=== PATIENT | female | born 1945 | race Caucasian/White ===

== ENCOUNTER → 2021-03-05 | Outpatient (CLI) | payer BC ==
[~2021-03-05] VITALS: Ht 167.6 cm; Wt 70.3 kg
[2021-03-05] VITALS (7 sets, daily range): BP systolic 128–148; BP diastolic 59–82
[~2021-03-05] MED LIST: AMBEREN; BISOPROLOL FUMA10 MG; BYSTOLIC10 MG PO; COLACE100 MG PO; COUMADIN PO; ELIQUIS5 MG PO; GABAPENTIN; HTN MED; LASIX 40 MG TAB40 MG PO; LEVOTHYROXIN0.137 M1 PO; LEVOTHYROXINE100 MC2 PO; NORCO5 PO; NORVASC5 MG PO; PROTONIX40 M4 PO; SIMVASTATIN40 MG PO; SUPER THERAVIT1 EACH PO; TOPROL XL100 MG PO; TRAZODONE HCL50 MG PO; VITAMIN B-12100 MCG; VITAMIN D1000 UNI1; ZOCOR40 MG PO
[2021-03-05 08:51] LABS: HEMATOCRIT 43.1 % (37.0-47.0); HEMOGLOBIN 14.2 gm/dL (12.0-15.0); MCH 30.6 pg (26.0-34.0); MCV 92.7 fL (80.0-100.0); RBC 4.65 mil/uL (4.20-5.00); RDW-CV 13.1 % (10.5-14.5); WBC 6.6 thou/uL (4.0-11.0)
[2021-03-05 08:56] LABS: CALCIUM 9.2 mg/dL (8.5-10.1); CREATININE 1.4 mg/dL (0.6-1.3); POTASSIUM 3.5 mmol/L (3.5-5.1)
[2021-03-05 09:00] LABS: APTT 26.8 Seconds (25.0-31.3); PROTIME 10.7 Seconds (9.20-11.50)
[2021-03-05 09:01] LABS: TOTAL BILIRUBIN 0.6 mg/dL (<0.1-1.0); TOTAL PROTEIN 7.1 g/dL (6.4-8.2)
--- NOTE | 2021-03-05 10:00 | EKG ---
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1945 Requested By: Franky Andrea Order Number: [id number] Reading MD: Franky Andrea Measurements Intervals Prole Rate: 66 P: AR: QRS: -9 QRSD: 101 T: -67 QT: 411 QTc: 431 Interpretive Statements Afib/flut and V-paced complexes No further rhythm analysis attempted due to paced rhythm Nonspecific repol abnormality, diffuse leads Compared to ECG 12/16/2010 08:28:15 Unable to compare to prior ECG due to interval pacer activation Electronically Signed On 03-05-2021 10:00:41 CDT by Franky Andrea [email or web address] <ELECTRONICALLY SIGNED> By: Franky Andrea MD, FAC 03/05/21 1000 4 4 Franky Andrea MD, [facility] /EPI
--- NOTE | 2021-03-05 15:11 | CARD ---
[address] [address] CARDIAC CATH REPORT Name: ANNETTE ARIAS [facility]#: [id number] Admission: 03/05/21 Attend Phys: Franky Andrea MD, F Discharge: Date of : 45 Report #: [id number] THIS REPORT FOR: cc: Stephanie Hampton MD, Lin W. MD Blick, David R. MD [facility] ~ APPROVED REPORT Study performed: 03/05/2021 09:07:35 Patient Status: Out-Patient Room #: Event Personnel: Jaylin Campa RTR Scrub, Jack Sanchez RTR Monitor, Lin Gabriel RN RN, Franky Andrea Pack Worker Exam: Generator Change for a Single Chamber Permanent Pacemaker Indications: Sick Sinus Syndrome/Tachy Marco Syndrome The patient is a 75 year-old female with a history of Sick Sinus Syndrome and pacemaker FRAN. Patient Info Anticoagulant Therapy: eliquis Conscious Sedation Start time: 1022 End Time: 1058 Fentanyl 25 mcg Versed 2 mg Implanted Devices: [employer] S SR MRI SureScan, Ser# [id number] Explanted Devices: Medtronic single chamber pacemaker generator Procedure The patient underwent informed consent. We discussed the details of the procedure including the risks, which include, but not limited to bleeding, infection, vascular damage, cardiac perforation, and pneumothorax. She understood these risks and was willing to proceed. As such, she was brought to the EP/Cardiac Catheterization laboratory in a fasting and sedated state and prepped and draped in a The patient underwent conscious sedation, with no related complications. The patient was brought to the EP/Cardiac Catheterization laboratory and the left chest and shoulder were prepped [place] [address] CARDIAC CATH REPORT Name: ANNETTE ARIAS Room: [facility]#: [id number] Admission: 03/05/21 Attend Phys: Franky Andrea MD, F Discharge: Date of : 45 Report #: [id number] manner. IV conscious sedation was used throughout procedure with appropriate monitoring and was performed in the presence of a registered nurse who was an independent trained observer other than the physician performing the procedure. The left subclavian region was infiltrated with 2% Lidocaine subcutaneous anesthesia. A transverse incision was made in the left upper chest cavity. Capturing and sensing thresholds were verified. Since the patient had been on Eliquis, the pacemaker pocket was irrigated with d-stat flowable solution prior to inserting the pacemaker generator. Electrode Parameters R Wave: 12.5 mv Ventricular Threshold: 0.75 v at pw 0.4ms Ventricular Resistance: 551 ohm Generator Change The generator change was then secured using sutures. The subcutaneous pocket was irrigated with vancomycin antibiotic solution.The lead was attached to the appropriate receptacle on the new pulse generator and setscrews firmly tightened to insure adequate contact and stability. The lead and pulse generator were placed into the subcutaneous pocket. Sharp and sponge counts were confirmed to be correct. At this time the pocket was closed subcutaneously with a 0 Vicryl and the skin was closed with a 4.0 Vicryl. The operative site was dressed in sterile fashion with skin affix and the patient was transferred to the floor in stable condition. Complications The patient tolerated the procedure well and there were no complications associated with the procedure. 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 <ELECTRONICALLY SIGNED> By: Franky Andrea MD, FACC 03/05/21 1511 [id number] Andrea MD, FACC /INF
--- NOTE | 2021-03-05 16:35 | H ---
[place] [address] HISTORY AND PHYSICAL Name: ANNETTE ARIAS Room: [facility] MICK Shahana.#: [id number] Admission: 03/05/21 Attend Phys: Franky Andrea MD, F Discharge: Date of : 45 Report #: [id number] THIS REPORT FOR: cc: Stephanie Hampton MD, Lin W. MD Blick, David R. MD [facility] ~ cc: Stephanie Hampton MD DATE OF SERVICE: 03/05/2021 CARDIOLOGY STAT HISTORY AND PHYSICAL HISTORY OF PRESENT ILLNESS: The patient is a 75-year-old single white female who was brought to the outpatient department to undergo pacemaker generator change. The patient has a long history of permanent atrial fibrillation. She had a pacemaker inserted by Dr. Zheng in 2010 when she presented with symptomatic bradycardia. She has been chronically anticoagulated. I last saw her in the office in 05/2020 when her pacemaker was found to be functioning normally. Recently, her pacemaker was interrogated and was found to be at FRAN. It was recommended that she come to the hospital to undergo a permanent pacemaker generator change. She denies any recent chest pain. She does note occasional shortness of breath. She has had no palpitations. She does have occasional lightheadedness, but no syncope. She has had no edema. She has had no bleeding problems. No fever. PAST MEDICAL HISTORY: She has had appendectomy, hysterectomy, previous gastric sleeve for obesity. She has had back surgery and knee replacement. She has a history of previous stroke. She uses a cane for balance problems. She has a history of hypertension and hyperlipidemia. CURRENT MEDICATIONS: Include amlodipine, Eliquis twice a day, she stopped taking it yesterday. Lasix for edema, Synthroid, metoprolol, Protonix, simvastatin, Desyrel. ALLERGIES: SHE HAS AN ALLERGY TO PENICILLIN. FAMILY HISTORY: Negative for heart disease. SOCIAL HISTORY: She is , lives with family members here in [place]. Quit smoking 40 years ago. No alcohol abuse. REVIEW OF SYSTEMS: No history of asthma, liver disease, kidney disease, cancer, psychiatric illness, chronic skin condition. PHYSICAL EXAMINATION: GENERAL: Revealed an elderly female, [place] [address] HISTORY AND PHYSICAL Name: ANNETTE ARIAS Room: [facility]#: [id number] Admission: 03/05/21 Attend Phys: Franky Andrea MD, F Discharge: Date of : 45 Report #: [id number] VITAL SIGNS: She had a blood pressure of 120/70, pulse is 60. She was afebrile. HEENT: She was anicteric. Conjunctivae are pink. Mucous membranes moist. NECK: Veins not appear distended. No carotid bruits. CHEST: Clear to auscultation. CARDIAC: Irregular rhythm. No significant murmur. ABDOMEN: Soft. EXTREMITIES: Had no edema. SKIN: Cool and dry. NEUROLOGIC: Nonfocal. LABORATORY DATA: Her ECG shows atrial fibrillation with occasional ventricular paced beat. IMPRESSION AND RECOMMENDATIONS: 1. Pacemaker generator at FRAN. Recommend generator change. 2. Atrial fibrillation. Rate controlled with a beta sandra. I would resume Eliquis after generator change was performed. 3. Hypertension. The patient is on a calcium sandra and beta sandra. 4. Previous infarction. 5. Hyperlipidemia. The patient is on a statin drug. 6. Obesity. Previous gastric bypass surgery. <ELECTRONICALLY SIGNED> By: Franky Andrea MD, FACC 03/05/21 1635 [id number] Veda Andrea MD, FACC /nt
== END | disposition home or self-care (01) ==
LOC: M.CL 08:11
PROVIDERS: ATTEND Internal Medicine Cardiovascular Disease
DX: Z45.010 Encounter for checking and testing of cardiac pacemaker pulse generator [battery] (principal); I49.5 Sick sinus syndrome; I10 Essential (primary) hypertension; E78.5 Hyperlipidemia, unspecified; Z98.890 Other specified postprocedural states; Z79.899 Other long term (current) drug therapy; Z20.822 Contact with and (suspected) exposure to COVID-19; Z86.73 Personal history of transient ischemic attack (TIA), and cerebral infarction without residual deficits; Z90.710 Acquired absence of both cervix and uterus; Z90.49 Acquired absence of other specified parts of digestive tract; Z79.01 Long term (current) use of anticoagulants; Z98.84 Bariatric surgery status; Z88.0 Allergy status to penicillin